=== PATIENT | female | born 1970 | race Two or more races ===

== ENCOUNTER → 2016-07-04 | Outpatient (CLI) | payer MEDICAID | END | disposition home or self-care (01) | LOC: CFH 13:17 | PROVIDERS: ATTEND Internal Medicine Cardiovascular Disease | DX: I10 Essential (primary) hypertension (principal) | CPT/HCPCS: 93306 ==

== ENCOUNTER 2019-03-18 08:45 | Outpatient (CLI) | payer MEDICAID | END 2019-03-18 23:59 | disposition home or self-care (01) | LOC: CFH 08:45 | PROVIDERS: ATTEND Genetic Counselor, MS | DX: N60.02 Solitary cyst of left breast (principal); R92.2 Inconclusive mammogram | CPT/HCPCS: 76642; 77066 ==

== ENCOUNTER 2020-04-30 20:59 | Emergency (ER) | payer MEDICAID ==
[~2020-04-30] VITALS: Ht 165.1 cm; Wt 73.6 kg
[2020-04-30 22:56] LABS: BASOPHILS % (AUTO) 1 % (0-1); EOSINOPHILS % (AUTO) 0 % (1-7); LYMPHOCYTES % (AUTO) 29 % (22-44); MD NO; MEAN CORPUSCULAR HEMOGLOBIN 29.9 pg (27.0-34.8); MEAN CORPUSCULAR HGB CONC 34.1 g/dL (32.4-35.8); MEAN PLATELET VOLUME 8.3 fL (7.4-10.4); MONOCYTES % (AUTO) 6 % (2-9); NEUTROPHILS % (AUTO) 65 % (42-75); PLATELET COUNT 135 x10^3/uL (130-400); RED BLOOD COUNT 4.46 x10^6/uL (3.82-5.3); RED CELL DISTRIBUTION WIDTH 14.3 % (9.6-15.2)
[2020-04-30 23:08] LABS: ALANINE AMINOTRANSFERASE 17 U/L (12-78); ALBUMIN 3.6 g/dL (3.4-5.0); ANION GAP 10 mmol/L (5-15); CALCIUM 8.3 mg/dL (8.5-10.1); CHLORIDE 106 mmol/L (98-107); CREATININE 0.86 mg/dL (0.55-1.02)
[2020-04-30 23:13] LABS: ALKALINE PHOSPHATASE 69 U/L (45-117); BILIRUBIN,TOTAL 0.3 mg/dL (0.2-1.0); TOTAL PROTEIN 7.9 g/dL (6.4-8.2); TROPONIN I < 0.015 ng/mL (0.000-0.045)
[2020-05-01 00:17] VITALS: BP 118/82
--- NOTE | 2020-05-01 00:17 | NUR ---
Patient given discharge instructions and they have confirmed that they understand the instructions. Patient ambulatory with steady gait.
== END 2020-05-01 00:25 | disposition home or self-care (01) ==
LOC: ED 21:29
DX: U07.1 COVID-19 (principal); J06.9 Acute upper respiratory infection, unspecified; I10 Essential (primary) hypertension; R50.9 Fever, unspecified; R05 Cough; R07.89 Other chest pain
CPT/HCPCS: 36415; 71045; 80053; 83690; 84484; 85025; 87635; 93005; 99285

== ENCOUNTER 2020-09-04 18:55 | Emergency (ER) | payer MEDICAID ==
[~2020-09-04] VITALS: Ht 162.6 cm; Wt 89.0 kg
[2020-09-04 19:37] LABS: MEAN CORPUSCULAR HEMOGLOBIN 29.3 pg (27.0-34.8); MEAN CORPUSCULAR HGB CONC 33.4 g/dL (32.4-35.8); MEAN PLATELET VOLUME 7.6 fL (7.4-10.4); PLATELET COUNT 222 x10^3/uL (130-400); RED BLOOD COUNT 4.39 x10^6/uL (3.82-5.3); RED CELL DISTRIBUTION WIDTH 13.8 % (9.6-15.2)
[2020-09-04 19:47] LABS: ALBUMIN 3.7 g/dL (3.4-5.0); ANION GAP 6 mmol/L (5-15); CALCIUM 8.3 mg/dL (8.5-10.1); CHLORIDE 110 mmol/L (98-107); CREATININE 0.77 mg/dL (0.55-1.02)
[2020-09-04 20:20] LABS: BAND#(MANUAL) 0.09 x10^3/uL; BANDS%(MANUAL) 1 % (0-7); EOS% (MANUAL) 7 % (1-7); LYMPH#(MANUAL) 2.47 x10^3/uL (1-3.4); LYMPHS% (MANUAL) 29 % (22-44); MONOS#(MANUAL) 0.43 x10^3/uL (0.3-2.7); MONOS% (MANUAL) 5 % (2-9); SEG#(MANUAL) 4.93 x10^3/uL (1.8-6.8); SEGS% (MANUAL) 58 % (42-75)
[2020-09-04 20:22] LABS: <PLATELET ESTIMATE> ADEQUATE; <WBC MORPHOLOGY> NORMAL
[2020-09-04 20:23] LABS: <PLT MORPHOLOGY> NORMAL PLT MORPH
--- NOTE | 2020-09-04 22:21 | NUR ---
DR HARRISON IN ROOM.
[2020-09-04] MEDS ORDERED: DEXAMETHASONE 4 MG TABLET PO ONE (22:30)
[2020-09-04] MEDS ORDERED: DEXAMETHASONE 4 MG TABLET ONE (22:31)
[2020-09-04 22:56] VITALS: BP 161/100
--- NOTE | 2020-09-04 22:56 | NUR ---
PT D/C WITH D/C SUMMARY AND SCRIPTS. ALL QUESTIONS ANSWERED. PT AMBULATES WITH STEADY GAIT TO REGISTRATION DESK FOR D/C HOME. PT DENIES ANY OTHER NEEDS PERTAINING TO THIS VISIT.
== END 2020-09-04 22:59 | disposition home or self-care (01) ==
LOC: ED 22:00
DX: J30.2 Other seasonal allergic rhinitis (principal); J32.0 Chronic maxillary sinusitis
CPT/HCPCS: 36415; 71045; 80048; 82040; 85025; 99284

== ENCOUNTER 2020-12-03 20:26 | Emergency (ER) | payer MEDICAID ==
[~2020-12-03] VITALS: Ht 157.5 cm; Wt 73.5 kg
[2020-12-03 20:29] VITALS: BP 163/102
--- NOTE | 2020-12-03 20:47 | NUR ---
Patient given discharge instructions and they have confirmed that they understand the instructions. Patient ambulatory with steady gait. NAD, all questions answered appropriately, denies additional needs at this time. No personal belongings left in room after discharge.
== END 2020-12-03 20:48 | disposition home or self-care (01) ==
LOC: ED 20:35
DX: S00.81XA Abrasion of other part of head, initial encounter (principal); I10 Essential (primary) hypertension; X58.XXXA Exposure to other specified factors, initial encounter; Y93.89 Activity, other specified; Y92.89 Other specified places as the place of occurrence of the external cause; Y99.8 Other external cause status
CPT/HCPCS: 99282